=== PATIENT | male | born 1940 | race Caucasian/White ===

== ENCOUNTER 2017-10-12 17:11 | Observation (INO) | payer MEDICARE, OTHER ==
[2017-10-12] MEDS: NS 1,000 ML IV ×2 (17:34)
[2017-10-12] MEDS ORDERED: PROPOFOL 500 MG/50 ML VIAL As Ordered ×2 (18:14)
[2017-10-12] MEDS ORDERED: LIDOCAINE 2% INJ 100 MG/5 ML SDV (FOR ANES.) As Ordered ×2 (18:14)
[2017-10-12] MEDS ORDERED: MIDAZOLAM INJ 2 MG/2 ML VIAL (J2250) As Ordered ×2 (18:15)
[2017-10-12] MEDS ORDERED: fentaNYL 100 MCG/2 ML INJECTION (J3010) As Ordered ×2 (18:15)
[2017-10-12] MEDS: ceFAZolin 2 GM/D5W 50 ML IV BAG (J0690 PER 500MG) As Ordered ×2 (18:50)
[2017-10-12] MEDS: LIDOCAINE 1% SDV INJ 30 ML VIAL As Ordered ×2 (20:01)
[2017-10-12] MEDS ORDERED: traMADol 50 MG TAB PO ×2 (20:30)
[2017-10-12] MEDS ORDERED: ACETAMINOPHEN TAB 650MG DOSE (2X325MG) PO ×2 (20:30)
[2017-10-12] MEDS ORDERED: HYDROMORPHONE HCL 0.5 MG/ 0.5 ML SYRINGE (J1170 PER 1) IV ×2 (20:45)
[2017-10-12] MEDS ORDERED: fentaNYL 100 MCG/2 ML INJECTION (J3010) IV ×2 (20:45)
[2017-10-12] MEDS: LR 1,000 ML IV ×2 (20:45)
[2017-10-12] MEDS ORDERED: ONDANSETRON 4MG/2ML VIAL (J2405) IV ×2 (20:45)
[2017-10-12] MEDS ORDERED: PERCOCET 5MG/325MG TAB PO ×2 (20:45)
[2017-10-12] MEDS: PRAVASTATIN 20 MG TAB PO ×2 (21:15)
[2017-10-12] MEDS: FUROSEMIDE 40 MG/4 ML VIAL (J1940) IV ×2 (22:44)
[2017-10-13] MEDS ORDERED: ceFAZolin 1GM INJ (J0690 PER 500MG) IV ×2 (03:00)
[2017-10-13] MEDS: ceFAZolin SOD 1 GM in D5W MINI-BAG PLUS 50 ML IV ×2 (03:52→11:43)
[2017-10-13 05:27] LABS: HEMATOCRIT 41.2 % (42.0-52.0); HEMOGLOBIN 13.6 g/dl (13.5-17.5); MEAN CORPUSCULAR HEMOGLOBIN 31.5 pg (27.0-33.0); MEAN CORPUSCULAR VOLUME 95.4 fl (80.0-96.0); PLATELET COUNT, AUTOMATED 159 10^3/uL (150-450); RED BLOOD COUNT 4.32 10^6/uL (4.30-6.10); RED CELL DISTRIBUTION WIDTH 13.6 % (11.5-14.5); WHITE BLOOD COUNT 11.1 10^3/uL (4.0-10.0)
[2017-10-13 05:42] LABS: ALBUMIN 3.4 GM/DL (3.2-5.2); ANION GAP 7 MEQ/L (8-16); BLOOD UREA NITROGEN 17 MG/DL (7-18); CALCIUM LEVEL 8.8 MG/DL (8.8-10.2); CARBON DIOXIDE LEVEL 30 MEQ/L (21-32); CHLORIDE LEVEL 104 MEQ/L (98-107); CREATININE FOR GFR 1.06 MG/DL (0.70-1.30); GLOMERULAR FILTRATION RATE > 60.0 (>42); GLUCOSE, FASTING 114 MG/DL (70-100); PHOSPHORUS LEVEL 2.7 MG/DL (2.5-4.9); POTASSIUM SERUM 3.6 MEQ/L (3.5-5.1); SODIUM LEVEL 141 MEQ/L (136-145)
[2017-10-13] MEDS: TAMSULOSIN 0.4 MG CAP PO ×2 (08:44)
[2017-10-13] MEDS: LISINOPRIL 10 MG TAB PO ×2 (11:47)
== END 2017-10-13 19:00 | disposition home or self-care (01) ==
LOC: M ED 17:11 → M ED INP 20:21 → M PCU 20:58
DX: I44.2 Atrioventricular block, complete (principal); R55 Syncope and collapse; I11.9 Hypertensive heart disease without heart failure; E78.00 Pure hypercholesterolemia, unspecified; G47.33 Obstructive sleep apnea (adult) (pediatric); E66.9 Obesity, unspecified; Z79.899 Other long term (current) drug therapy; Z87.891 Personal history of nicotine dependence
CPT/HCPCS: 33208

== ENCOUNTER → 2018-09-23 | Outpatient (REF) | payer MEDICARE, OTHER ==
[~2018-09-23] MED LIST: FLOM0.4C39 PO; LISI10TA4 PO; PRAV20TA2 PO
[2018-09-25 00:06] LABS: ANTINUCLEAR ANTIBODIES DIRECT Negative (Negative); Lyme Disease IgG/IgM Antibodie <0.91 ISR (0.00-0.90); Lyme Disease IgM Ab Quantitati <0.80 index (0.00-0.79)
== END ==
LOC: M LAB REF 12:42
PROVIDERS: ATTEND Nurse Practitioner Adult Health
DX: M25.50 Pain in unspecified joint (principal)

== ENCOUNTER → 2018-10-11 | Outpatient (REF) | payer MEDICARE, OTHER ==
[2018-10-11 17:06] LABS: RHEUMATOID FACTOR QUANT < 10.0 IU/ML (<15.0)
== END ==
LOC: M LAB REF 16:32
PROVIDERS: ATTEND Nurse Practitioner Adult Health
DX: M25.50 Pain in unspecified joint (principal)

== ENCOUNTER → 2020-07-19 | Outpatient (REF) | payer MEDICARE, OTHER ==
[~2020-07-19] MED LIST changes: +LISI10TA22 PO; -LISI10TA4 PO
== END ==
LOC: M LAB REF 16:43
PROVIDERS: ATTEND Physician Assistant Medical
DX: I44.2 Atrioventricular block, complete (principal)

== ENCOUNTER → 2020-07-20 | Outpatient (CLI) | payer MEDICARE, OTHER ==
--- NOTE | 2020-07-20 16:43 | REP ---
INDICATION: PAIN/SWELLING, ELEVATED D-DIMER, R/O DVT. COMPARISON: None. TECHNIQUE: Multiple ultrasonographic images of the deep venous structures of the bilateral thigh were obtained from the common femoral vein to the popliteal vein along with Doppler interrogation and color flow Doppler images. FINDINGS: There is no abnormal echogenic material seen within any of the visualized deep venous structures that would suggest acute thrombosis. Coaptation is unremarkable throughout. Doppler interrogation shows an expected response to respiratory variability and augmentation. The color flow images show what appears to be a normal vascular pattern throughout. IMPRESSION: There is no ultrasonographic evidence of deep venous thrombosis involving any of the visualized deep venous structures of the bilateral thigh, as described above. <Electronically signed by Stefano Hamm > 07/20/20 [id number]
== END ==
LOC: M RAD 15:40
PROVIDERS: ATTEND Physician Assistant Medical
DX: R22.43 Localized swelling, mass and lump, lower limb, bilateral (principal); M79.604 Pain in right leg; M79.605 Pain in left leg

== ENCOUNTER → 2020-08-09 | Outpatient (REF) | payer MEDICARE, OTHER | LOC: M LAB REF 11:07 | PROVIDERS: ATTEND Physician Assistant Medical | DX: R79.1 Abnormal coagulation profile (principal); I44.2 Atrioventricular block, complete ==

== ENCOUNTER → 2023-08-03 | Outpatient (CLI) | payer MEDICARE, OTHER | LOC: M WUC 09:30 | PROVIDERS: ATTEND Physician Assistant Medical | DX: M25.551 Pain in right hip (principal) ==